=== PATIENT | male | born 1970 | race Caucasian/White ===

== ENCOUNTER 2018-05-21 19:28 | Emergency (ER) | payer SELFPAY ==
--- NOTE | 2018-05-21 20:04 | ED Physician Documentation ---
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 Feels OK in ER. No CP, no LOC, no palpitations. Had similar episodes 2 years ago just befor ehe was diagnosed with DM. Has not had insulin for 203 weeks. If he is outside of [place], the cost is $1000.00. He will be home in [place] tomorrow. Urine x "not very much" today. Drinks Powerade, but not water. No other modifying factors or associated signs. - ROS CONST: no problems - PAST HX Past History: other (IDDM, GERD) Surgeries/Procedures: other (Hany fundoplication, appendectomy) Allergies/Adverse Reactions: Allergies Allergy/AdvReac Type Severity Reaction Status Date / Time Penicillins Allergy Verified 05/21/18 20:09 risperidone [From Risperdal] Allergy Verified 05/21/18 20:09 trazodone Allergy Verified 05/21/18 20:09 Home Medications: Ambulatory Orders Medication Instructions Recorded Aripiprazole [Abilify] 5 mg PO D 05/21/18 Liraglutide [Victoza 3-Markos] 0.6 mg SQ D 05/21/18 Lisinopril 5 mg PO D 05/21/18 Metformin HCl 1,000 mg PO BID 05/21/18 Omeprazole 40 mg PO D 05/21/18 Rosuvastatin Calcium [Crestor] 5 mg PO D 05/21/18 Sertraline HCl [Zoloft] 100 mg PO D 05/21/18 - SOCIAL HX Smoking History: non-smoker Alcohol Use: none Drug Use: none - FAMILY HX Family History: No - REVIEWED ASSESSMENTS Nursing Assessment Reviewed: Yes Vitals Reviewed: Yes Progress - Progress Progress: Report Submission Date: May 21, 2018 8:41:10 PM CDT Patient Study Name: IVY JONES Date: May 21, 2018 8:14:03 PM CDT Modality Type: DX Gender: M Description: CHEST : 70 Institution: [facility] Physician: TRACEY ROBERTSON - JULIA HISTORY: 47-year-old male with vertigo. COMPARISON: None available TECHNIQUE: PA and lateral views of the chest were performed. FINDINGS: No pneumothorax, consolidative infiltrates, pleural effusions, or pulmonary edema. The heart is not enlarged. IMPRESSION: No acute intrathoracic process identified. Electronically signed on May 21, 2018 8:41:10 PM CDT by: Antonio Mccain ED Results Lab/Radiology - Orders Orders: ED Orders Category Date Time Status Continuous EKG monitoring Q1H Care 05/21/18 19:51 Ordered Orthostatics 1T Care 05/21/18 19:[address] IV Lock 1T Care 05/21/18 19:51 Ordered CHEST 2VIEW [RAD] Stat Exams 05/21/18 Ordered CBC/PLATELET/DIFF Routine Lab 05/21/18 Ordered CMP Routine Lab 05/21/18 Ordered DRUG SCREEN URINE MEDICAL ONLY Routine Lab 05/21/18 Ordered ETHANOL REF Stat Lab 05/21/18 Ordered TROPONIN I (cTnI) Stat Lab 05/21/18 Ordered URINALYSIS Routine Lab 05/21/18 Ordered EKG WITH COMPARISON Stat Ther 05/21/18 Ordered General Adult Physical Exam - PHYSICAL EXAM GENERAL APPEARANCE: obese EENT: eye inspection normal, ENT inspection normal, pharynx normal NECK: normal inspection, supple RESPIRATORY: no resp distress, breath sounds normal CVS: reg rate & rhythm, heart sounds normal, no murmur ABDOMEN: soft, normal bowel sounds, no distension BACK: normal inspection, no CVA tenderness SKIN: warm/dry, normal color EXTREMITIES: non-tender, no evidence of injury NEURO: CN's nml as tested, motor nml, cognition normal Discharge Clincal Impression: Dehydration Referrals: Primary Doctor,No [Primary Care Provider] - 2 Days Additional Instructions: Drink more water. Be sure to obtain your insulin tomorrow. Your lab results, EKG and chest x-ray were all reassuring. Follow up with your provider as needed. Condition: Good Disposition: 01 HOME, SELF-CARE Decision to Admit: NO Decision Time: 21:25
[2018-05-21] MEDS ORDERED: 0.9 % SODIUM CHLORIDE 1,000 ML IV ONE ×2 (20:46)
[2018-05-21 20:48] LABS: BASOPHILS % 0.6 (0.0-1.5); EOSINOPHILS % 2.4 % (0.0-6.8); MEAN CORPUSCULAR HEMOGLOBIN 29.4 pg (28.0-34.0); MEAN CORPUSCULAR VOLUME 90.2 fl (80.0-100.0); MONOCYTES % 3.9 % (0.0-11.0)
[2018-05-21 20:53] LABS: eGFR (African) > 60; eGFR (Non-African) > 60
--- NOTE | 2018-05-21 20:54 | Diagnostic Imaging Report ---
TRACEY ROBERTSON [facility] [address] [facility].[address] [id number] Report Submission Date: May 21, 2018 8:41:10 PM CDT Patient Study Name: IVY JONES Date: May 21, 2018 8:14:03 PM CDT Modality Type: DX Gender: M Description: CHEST : 70 Institution: [facility] Physician: TRACEY ROBERTSON HISTORY: 47-year-old male with vertigo. COMPARISON: None available TECHNIQUE: PA and lateral views of the chest were performed. FINDINGS: No pneumothorax, consolidative infiltrates, pleural effusions, or pulmonary edema. The heart is not enlarged. IMPRESSION: No acute intrathoracic process identified. Electronically signed on May 21, 2018 8:41:10 PM CDT by: Antonio ADAMES
[2018-05-21 21:57] LABS: APPEARANCE,URINE CLEAR (CLEAR); CANNABINOIDS NEGATIVE ng/mL (< 50); COLOR,URINE AMBER (YELLOW); METHYLENEDIOXYMETHAMPHETAMINE NEGATIVE ng/mL (<500); OCCULT BLOOD,URINE NEGATIVE (NEGATIVE); PH URINE 5.5 (5.0 - 8.0)
[2018-05-21 21:58] LABS: UROBILINOGEN URINE 0.2 Eu (0.2-1.0)
[2018-05-22 00:16] VITALS: BP 103/44
== END 2018-05-21 22:00 | disposition home or self-care (01) ==
LOC: ED 19:28
DX: E86.0 Dehydration (principal)
CPT/HCPCS: 71046; 80053; 80320; 80377; 81002; 84484; 85025; 93005; J7030; 96360; 99285; G0480; G0481; S1016